=== PATIENT | male | born 1955 | race Caucasian/White ===

== ENCOUNTER 2018-07-01 06:02 | Inpatient (IN) | payer OTHER ==
[2018-06-22 11:12] VITALS: BMI 29.9
[2018-07-01] MEDS ORDERED: CEFAZOLIN/Water 2 GM/20 ML SYRINGE ONE (06:28)
[2018-07-01] MEDS ORDERED: Bacitracin Zinc Ointment 30 gm TUBE ONE (07:08)
[2018-07-01] MEDS ORDERED: Thrombin 5000 UNITS/5 ML VIAL ONE (07:08)
[2018-07-01] MEDS ORDERED: Sodium Chloride 0.9% 20 ML ONE (07:08)
[2018-07-01] MEDS ORDERED: Albumin 5% 500 ML ONE (07:14)
[2018-07-01] MEDS ORDERED: Fentanyl 250 MCG/5 ML VIAL ONE (07:14)
[2018-07-01] MEDS ORDERED: Albuterol Sulfate HFA (OR ONLY) ONE (07:14)
[2018-07-01] MEDS ORDERED: Ketamine 50 MG/ML VIAL ONE (07:14)
[2018-07-01] MEDS ORDERED: Fentanyl 100 MCG/2 ML VIAL ONE ×3 (07:41→12:57)
[2018-07-01] MEDS ORDERED: Morphine Sulfate 2 MG/ML SYRINGE SLOW IVP PRN (11:54)
[2018-07-01] MEDS ORDERED: HYDROmorphone 2 MG/ML VIAL SLOW IVP PRN (11:54)
[2018-07-01] MEDS ORDERED: Promethazine HCl 25 MG/ML VIAL IM PRN ×2 (11:54→12:38)
[2018-07-01] MEDS ORDERED: Promethazine HCl 25 MG/ML VIAL SLOW IVP PRN (11:54)
[2018-07-01] MEDS ORDERED: Meperidine HCl/PF 25 MG/ML VIAL SLOW IVP PRN (11:54)
[2018-07-01] MEDS ORDERED: Ondansetron HCl/PF 4 MG/2 ML Vial IVP PRN (11:54)
[2018-07-01] MEDS ORDERED: Fleet Enema 133 ML BOT PR PRN (12:38)
[2018-07-01] MEDS ORDERED: Acetaminophen 325 MG TAB PO PRN (12:38)
[2018-07-01] MEDS ORDERED: Mag-Al 1200 mg/1200 mg/30 ML UDCUP PO PRN (12:38)
[2018-07-01] MEDS ORDERED: traMADol HCl 50 MG TAB PO PRN (12:38)
[2018-07-01] MEDS ORDERED: Milk Of Magnesia 30 ML UDCUP PO PRN (12:38)
[2018-07-01] MEDS ORDERED: Acetaminophen/Codeine 30-300mg Tablet PO PRN (12:38)
[2018-07-01] MEDS ORDERED: Bisacodyl 10 MG SUPP PR PRN (12:38)
[2018-07-01] MEDS ORDERED: LORATADINE PO PRN (12:43)
[2018-07-01] MEDS ORDERED: DEXTRAN 70 EA EYE PRN (12:43)
[2018-07-01] MEDS ORDERED: POLYETHYLENE GLYCOL 400 EA EYE PRN (12:43)
[2018-07-01] MEDS ORDERED: TETRAHYDROZOLINE EA EYE PRN (12:43)
[2018-07-01] MEDS ORDERED: POVIDONE EA EYE PRN (12:43)
[2018-07-01] MEDS ORDERED: MUPIROCIN 2% TOP SCH (12:45)
--- NOTE | 2018-07-01 13:18 | OP ---
OR: 12 WOUND TYPE: Type 1 wound. SURGEON: Surjit Díaz M.D. SMALL ENGINE SPECIALIST: Song Hughes PA-C. PREPROCEDURE DIAGNOSIS: Cervical stenosis with myelopathy and Lumbar stenosis with lumbar radiculopathy. POSTPROCEDURE DIAGNOSIS: Cervical stenosis with myelopathy and Lumbar stenosis with lumbar radiculopathy. PROCEDURE: 1. C2, C3, C4, C5 laminectomies, partial facetectomies, foraminotomies. 2. L2, L3, L4, L5 laminectomies, partial facetectomies, foraminotomies. DESCRIPTION OF PROCEDURE: After informed consent was obtained from the patient , the patient brought to OR 12. Proper patient pause and identification was carried out. He was placed under general anesthesia. [place] lori was secured to the skull. He was then positioned prone. All appropriate points were padded. We identified the C2, C3, C4, C5, segments. A linear german was made over this region. We also identified the L2, L3, L4, L5 segments and a linear german was made over this region. These areas were sterilely cleansed, prepared, and draped. Proper patient pause and the identification was carried out. The wound was then opened with a combination of sharp, monopolar and blunt dissection. The C2, C3, C4, C5 segments were exposed along with the L2, L3, L4, L5 segments. A localization film confirmed our area of interest. We then performed a C2, C3, C4, C5 laminectomies, partial facetectomies and foraminotomies along with L2, L3, L4, L5 laminectomies, partial facetectomies and foraminotomies. We had excellent decompression of the common dural tube, cervical spine and the lumbar spine and the nerve roots. Copious irrigation occurred throughout as did maximizing hemostasis. Both wounds were copiously irrigated and closed in anatomic layers following the sprinkling of vancomycin powder. The patient then emerged from anesthesia. STEPHANIE
[2018-07-01] MEDS ORDERED: Loratadine 10 MG TAB PO PRN (13:22)
[2018-07-01] MEDS ORDERED: Mupirocin 2% Ointment 22 GM Tube TOP SCH (13:30)
[2018-07-01] MEDS ORDERED: PVP EA EYE SCH (13:30)
[2018-07-01] MEDS ORDERED: PEG EA EYE SCH (13:30)
[2018-07-01] MEDS ORDERED: DEXT EA EYE SCH (13:30)
[2018-07-01] MEDS ORDERED: TETRAHYDRZ EA EYE SCH (13:30)
[2018-07-01] MEDS: Sodium Chloride 0.9% 1,000 ML IV SCH (14:59)
[2018-07-01] MEDS: CEFAZOLIN/Water 2 GM/20 ML SYRINGE SLOW IVP SCH ×2 (15:04→23:33)
[2018-07-01] MEDS: tiZANidine HCl 4 MG TAB PO PRN (15:04)
[2018-07-01] MEDS: Mometasone/Formoterol 120 PUFF INHALER INH SCH (19:10)
[2018-07-01] MEDS: HYDROcodone/Acetaminophen 7.5/325 mg Tablet PO PRN ×2 (19:29→23:32)
[2018-07-01] MEDS ORDERED: Tobramycin/Dexamethasone Ophth Oint 3.5 GM TUBE EA EYE SCH (21:00)
[2018-07-01] MEDS ORDERED: Rosuvastatin 5 MG TAB PO SCH (21:00)
[2018-07-01] MEDS ORDERED: Non-Formulary Item 1 EACH (Azelastine Hcl [Azelastine Hcl 0.15% Nasal Spray] 2 SPRAY) EA NARE SCH (21:00)
[2018-07-01] MEDS: Azelastine 137 MCG/Spray 30 ML NS SCH (21:01)
[2018-07-01] MEDS: Rosuvastatin 5 MG TAB PO SCH (21:04)
[2018-07-01] MEDS: Tobramycin/Dexamethasone Ophth Oint 3.5 GM TUBE EA EYE SCH (23:32)
[2018-07-02] MEDS: Sodium Chloride 0.9% 1,000 ML IV SCH ×2 (05:38→15:36)
[2018-07-02] MEDS: HYDROcodone/Acetaminophen 7.5/325 mg Tablet PO PRN ×3 (06:20→15:38)
[2018-07-02] MEDS: tiZANidine HCl 4 MG TAB PO PRN (06:24)
[2018-07-02] MEDS: Mometasone/Formoterol 120 PUFF INHALER INH SCH ×2 (06:36→18:20)
[2018-07-02] MEDS: Multivit, Therapeutic 1 TAB PO SCH (08:51)
[2018-07-02] MEDS: Azelastine 137 MCG/Spray 30 ML NS SCH ×2 (08:51→20:56)
[2018-07-02] MEDS: CEFAZOLIN/Water 2 GM/20 ML SYRINGE SLOW IVP SCH ×2 (08:51→15:38)
[2018-07-02] MEDS ORDERED: DEXLANSOPRAZOLE PO SCH (09:00)
[2018-07-02] MEDS ORDERED: Non-Formulary Item 1 EACH (Multivitamin [Multi-Vitamin Daily] 1 TAB) PO SCH (09:00)
--- NOTE | 2018-07-02 09:22 | PRG ---
DATE OF SERVICE: 07/02/2018 Mr. Garces is postoperative day 1 from C2-C5 and L2-L5 laminectomies, facetectomies, foraminotomies . He is doing well, sitting in a bedside chair, moving all extremities to command with no apparent d eficit. He states paresthesias in his hands are already improving. He is wearing a well-fitting cer vical collar. We will work on mobilization today and consider a physiatry consultation to assist wit h mobilization. I anticipate at least another day in the hospital, given the fact that we did 2 surg eries in 2 different portions of his spine.
[2018-07-02] MEDS: Rosuvastatin 5 MG TAB PO SCH (20:54)
[2018-07-02] MEDS: Tobramycin/Dexamethasone Ophth Oint 3.5 GM TUBE EA EYE SCH (20:58)
[2018-07-03] MEDS: HYDROcodone/Acetaminophen 7.5/325 mg Tablet PO PRN ×3 (00:07→12:40)
[2018-07-03] MEDS: CEFAZOLIN/Water 2 GM/20 ML SYRINGE SLOW IVP SCH ×2 (00:08→10:26)
[2018-07-03] MEDS: Sodium Chloride 0.9% 1,000 ML IV SCH (06:05)
[2018-07-03] MEDS: Azelastine 137 MCG/Spray 30 ML NS SCH (08:30)
[2018-07-03] MEDS: Multivit, Therapeutic 1 TAB PO SCH (09:38)
[2018-07-03] MEDS: Mometasone/Formoterol 120 PUFF INHALER INH SCH (11:07)
[2018-07-03 12:16] VITALS: BP 147/71; TEMP 98.1
--- NOTE | 2018-07-03 17:43 | DIS ---
DATE OF ADMISSION: 07/01/2018 DATE OF DISCHARGE: 07/03/2018 DISCHARGE DIAGNOSES: Include, 1. Rheumatoid arthritis. 2. Cervical stenosis. 3. Lumbar stenosis. HOSPITAL COURSE: Mr. Garces was admitted on 07/01/2018 to undergo staged procedure including C2-C5 posterior laminectomies with L2-L5 laminectomies, partial facetectomies and foraminotomies. The pat ient tolerated the procedure well and was able to recover for 2 overnights on the surgical unit for p hysical therapy and pain control. At the time of discharge, the patient was doing well and had good strength in the bilateral upper extremities and lower extremities. Appropriate outpatient followup a ppointments and patient education was provided at the time of discharge. The patient was doing well postoperatively.
== END 2018-07-03 15:12 | disposition home or self-care (01) | DRG 29 ==
LOC: SDC 06:02 → OBSVTOIN 13:50 → SURG A 13:50
PROVIDERS: ADMIT Surgery; ATTEND Surgery
PROC: 00NW0ZZ Release Cervical Spinal Cord, Open Approach (ICD-10-PCS; principal; 2018-07-01)
PROC: 00NY0ZZ Release Lumbar Spinal Cord, Open Approach (ICD-10-PCS; 2018-07-01)
DX: M54.12 Radiculopathy, cervical region (principal); G95.9 Disease of spinal cord, unspecified; M48.02 Spinal stenosis, cervical region; M48.061 Spinal stenosis, lumbar region without neurogenic claudication; M06.9 Rheumatoid arthritis, unspecified; M54.16 Radiculopathy, lumbar region
CPT/HCPCS: 76001; 90471; 90732; A4216; G0009; G8978-GP-CK; G8979-GP-CI; J0131; J2270; J3010; J3370; J3490; P9045

== ENCOUNTER 2022-01-17 09:41 | Outpatient (CLI) | payer MEDICARE | END 2022-01-17 09:42 | disposition home or self-care (01) | LOC: TBSIIMAG 09:41 | PROVIDERS: ATTEND Surgery | DX: M54.2 Cervicalgia (principal); M50.30 Other cervical disc degeneration, unspecified cervical region; Z98.890 Other specified postprocedural states | CPT/HCPCS: 72141 ==

== ENCOUNTER 2023-08-19 10:14 | Outpatient (CLI) | payer MEDICARE | END 2023-08-19 10:15 | disposition home or self-care (01) | LOC: BICMAMMO 10:14 | PROVIDERS: ATTEND Internal Medicine Rheumatology | DX: M81.0 Age-related osteoporosis without current pathological fracture (principal) | CPT/HCPCS: 77080 ==